=== PATIENT | female | born 1985 | race Caucasian/White ===

== ENCOUNTER 2023-07-17 13:20 | Inpatient (IN) | payer BC ==
[2023-07-17 14:26] LABS: BILIRUBIN, URINE NEGATIVE (negative); BLOOD/HGB, URINE LARGE (Negative); KETONE, URINE NEGATIVE (Negative); LEUK ESTERASE, URINE SMALL (negative); NITRITE, URINE NEGATIVE (negative); PH, URINE 5.5 (5-7)
[2023-07-17 14:36] LABS: BACTERIA, URINE 1+ /hpf (negative); EPITHELIAL CELLS, URINE SQUAMOUS 1+ /lpf (0-1+); RED BLOOD CELLS, URINE 0-1 /hpf (0-5); REFLEX CULTURE, URINE Yes (No)
[2023-07-17 15:11] LABS: BASOPHILS 0.3 % (0-2); EOSINOPHILS 0.7 % (0-6); HEMATOCRIT 33.7 % (35.0-50.0); HEMOGLOBIN 11.5 g/dL (12.0-18.0); LYMPHOCYTES 4.9 % (24-44); MCH 32.5 (27-36); MCHC 34.2 g/dl (30-36); MCV 94.9 fl (81-99); MONOCYTES 7.5 % (0-12); NEUTROPHILS 86.6 % (39-80); PLATELET COUNT 224 K/uL (140-440); RBC 3.55 M/ul (4.3-5.7); RDW 12.7 (10.5-15.0)
[2023-07-17 15:56] LABS: ABO A; ANTIBODY SCREEN NEGATIVE; RH NEGATIVE
--- NOTE | 2023-07-18 06:53 | PR ---
[facility] [address] [place], [place] [address] Signed AP Progress Notes Datetime Report Generated by CPN: 07/18/2023 06:53 Chief Complaint: Pyelonephritis PHYSICAL EXAM: [id number] General: Normal HEENT: Normal Neurologic: Not Done Thyroid: Not Done Cardiovascular: Not Done Respiratory: Not Done Breast: Not Done Back: Abnormal Abdomen: Normal Genitourinary Exam: Not Done Extremities: Normal DTRs: Not Done Physical Exam Comments: S: Patient doing well. Resting in bed. Denies JONES, CP, SOB, F/C, N/V, RUQ pain, changes in vision, vaginal bleeding or discharge, LOF. +FM. Tolerating regular diet, ambulating, voiding on own, pain controlled. She reports she feels the pain is improving. O: AFVSS Abd: Soft, nontender, gravid and appropriate for gestational age. Back: Continued CVA tenderness with L > R. Musc: JOYCE. A/P: Impression: 38 yo @ 27w1d with pyelonephritis. CVA tenderness improving. Plan: Continue IV antibiotic regiment of Ceftriaxone 1g daily Disposition in house. Possible discharge home tomorrow to continue outpatient antibiotics. VITAL SIGNS: [id number] Vital Signs: Reviewed; Within Normal Limits EXAM: [id number] MEMBRANES: [id number] FETUS A: [id number] FHR Baseline: 145 Gestation by US: 27.0 FETUS B: [id number] PROGRESS NOTES: [id number] *Electronically Signed* 07/18/23 0653 ZOE PINK MD PATIENT NAME: DOROTEO CONKLIN PROGRESS NOTE DATE OF : 83 PHYSICIAN: ZOE PINK MD RPT #: [id number] REPORT IS CONFIDENTIAL AND NOT TO BE RELEASED WITHOUT AUTHORIZATION [facility] [address] [place] [address] Signed Signing Physician: Zoe Pink MD Copies: ~ *Electronically Signed* 07/18/23 0653 ZOE PINK MD PATIENT NAME: DOROTEO CONKLIN PROGRESS NOTE DATE OF : 84 PHYSICIAN: ZOE PINK MD RPT #: [id number] REPORT IS CONFIDENTIAL AND NOT TO BE RELEASED WITHOUT AUTHORIZATION
--- NOTE | 2023-07-19 09:07 | PR ---
[facility] [address] [place], [place] [address] Signed AP Progress Notes Datetime Report Generated by TOÑITO: 07/19/2023 09:07 Chief Complaint: Pyelonephritis PHYSICAL EXAM: [id number] General: Normal HEENT: Normal Neurologic: Not Done Thyroid: Not Done Cardiovascular: Not Done Respiratory: Not Done Breast: Not Done Back: Abnormal Abdomen: Normal Genitourinary Exam: Not Done Extremities: Normal DTRs: Not Done Physical Exam Comments: S: 38 yo @ 27w2d with pyelonephritis. Denies JONES, CP, SOB, F/C, N/V, RUQ pain, changes in vision, vaginal bleeding or discharge, LOF. +FM. Tolerating regular diet, ambulating, voiding, pain controlled without medication. She reports her pain has improved. On admission pain was noted to be 8/10. Currently she rates pain at 3-5 with occasional 7 at its worst. O: AFVSS Abd: Soft, non-tender, gravid, appears appropriate for gestational age. Musc: COOK. Her pain is still present but has improved since admission. She feels she is comfortable enough to go home today to continue with antibiotics orally and prophylactic antibiotics for remainder of . She has follow up with Dr. Lopes in the coming week. Discharge home today. Impression: 38 yo at 27w2d with pyelonephritis. Her pain is still present but has improved since admission. She feels she is comfortable enough to go home today to continue with antibiotics orally and prophylactic antibiotics for remainder of . She has follow up with Dr. Lopes in the coming week. Plan: Discharge home today. VITAL SIGNS: [id number] Vital Signs: Reviewed; Within Normal Limits EXAM: [id number] *Electronically Signed* 07/19/23906 ZOE BLANKENSHIP MD PATIENT NAME: DOROTEO CONKLIN PROGRESS NOTE DATE OF : [birth year] PHYSICIAN: ZOE BLANKENSHIP MD RPT #: [id number] REPORT IS CONFIDENTIAL AND NOT TO BE RELEASED WITHOUT AUTHORIZATION [facility] [address] [facility] [address] [place], [place] [address] Signed MEMBRANES: [id number] FETUS A: [id number] FHR Baseline: 145 Gestation by US: 27.0 FETUS B: [id number] PROGRESS NOTES: [id number] Signing Physician: Zoe Blankenship MD Copies: ~ *Electronically Signed* 07/19/23906 ZOE BLANKENSHIP MD PATIENT NAME: DOROTEO CONKLIN PROGRESS NOTE DATE OF : 84 PHYSICIAN: ZOE BLANKENSHIP MD RPT #: [id number] REPORT IS CONFIDENTIAL AND NOT TO BE RELEASED WITHOUT AUTHORIZATION
== END 2023-07-19 13:40 | disposition home or self-care (01) | DRG 833 ==
LOC: FBCO 13:20 → FBC 14:30 → MS 14:30 → FBCO 14:30 → FBC 14:30
PROVIDERS: ADMIT Obstetrics & Gynecology; ATTEND Obstetrics & Gynecology
DX: O23.02 Infections of kidney in pregnancy, second trimester (principal); Z3A.27 27 weeks gestation of pregnancy; Z79.82 Long term (current) use of aspirin
CPT/HCPCS: 36415; 59025; 81001; 85025; 86850; 86900; 86901; 87077; 87088; 87186; A9270; G0463; J0696; J7121